=== PATIENT | female | born 1975 | race Caucasian/White ===

== ENCOUNTER 2023-11-20 10:08 | Day surgery (SDC) | payer OTHER, SELFPAY ==
--- NOTE | 2023-11-20 10:12 | US_ITS ---
[address] [address] Patient Name: SAHRA ADHIKARI MRN: [id number] date: 1975 Sex: F Assigned Patient Location: [place] Current Patient Location: [place] Accession/Order Number: [id number] Exam Date: 11/20/2023 10:30 Report Date: 11/20/2023 12:04 At the request of: JEFF ROSA Procedure: US biopsy thyroid EXAMINATION: US biopsy thyroid HISTORY: Thyroid Nodule COMPARISON: No relevant comparison available. TECHNIQUE: After obtaining informed consent, an ultrasound-guided biopsy was performed in the usual sterile manner. FINDINGS: IMAGING: Ultrasound BIOPSY NEEDLE: 25-gauge 2 inch SPECIMEN TYPE, #, LOCATION: 3 fine-needle aspirates, 5 mm calcified left thyroid nodule MEDICATION: 3 cc 1% buffered lidocaine COMPLICATIONS: None. LABORATORY: Pathology and molecular analysis OTHER: Negative. US/US biopsy thyroid IMPRESSION: Uneventful ultrasound guided biopsy. The patient was instructed to obtain follow up care and biopsy results from the referring physician. Electronically authenticated by: MARICHUY POLLOCK Date: 11/20/2023 12:04
[2023-11-20 10:30] VITALS: BP 141/88; PULSE 73; O2SAT 97
[2023-11-20] MEDS: LIDOCAINE HCL 10 ML, SODIUM BICARBONATE 1 MEQ INJ (11:15)
--- NOTE | 2023-11-20 12:21 | SUR.PREOP ---
11/13/23 Pt instructed on procedure, date, time, and prep per DStill.
== END 2023-11-20 11:30 | disposition home or self-care (01) ==
LOC: US 10:08
PROVIDERS: Radiology Diagnostic Radiology; PCP Otolaryngology; Visit Provider Otolaryngology
DX: E04.1 Nontoxic single thyroid nodule (principal)
CPT/HCPCS: 10005; 88173; 99999